=== PATIENT | female | born 1955 | race Two or more races ===

== ENCOUNTER 2017-02-24 12:49 | Emergency (ER) | payer OTHER ==
[~2017-02-24] VITALS: Ht 162.6 cm; Wt 86.0 kg
[~2017-02-24 12:49] MED LIST: AMLO-147 PO; CHOL2000 PO; HYDR-3498 PO; LISI10TA2 PO
[2017-02-24 13:05] VITALS: Ht 162.6 cm; Wt 86.0 kg
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
[2017-02-24] MEDS ORDERED: KETOROLAC 15 MG INJ IM STA (14:03)
[2017-02-24] MEDS ORDERED: ONDANSETRON (ODT) 4 MG TAB ODT STA (14:03)
--- NOTE | 2017-02-24 15:23 | RADRPT ---
PROCEDURE: Chest 2 views. CLINICAL INDICATION: Chest pain and trauma TECHNIQUE: PA and lateral views of the chest were obtained. COMPARISON: April 11, 2016 FINDINGS: The heart size is within normal limits. Calcified atherosclerosis is noted in the aorta. The lungs a re hyperexpanded. No consolidations are identified. No pneumothorax is seen. The osseous structur es are osteopenic, but appear grossly intact. Mild to moderate degenerative changes are seen in the spine and shoulders. IMPRESSION: Calcified atherosclerosis in the aorta. Hyperexpanded, clear lungs. No visualized traumatic injury. If there is high clinical suspicion for traumatic injury, further evaluation with CT should be consi dered. RPTAT: AA .Al Arana MD, Date Time Electronically viewed and signed by .Al Arana MD, MD on 02/24/2017 15:23 .P/
--- NOTE | 2017-02-24 15:25 | RADRPT ---
PROCEDURE: XR Cervical Spine 3 Views. CLINICAL INDICATION: Neck pain and trauma TECHNIQUE: AP, lateral and odontoid views of the cervical spine were performed. The images were re viewed on a PACS workstation. COMPARISON: None. FINDINGS: Diffuse osteopenia is identified. Straightening of the normal lordosis is seen. The base of the den s and orientation of C1 to C2 are not well visualized on the odontoid image. No fractures or destruc tive bony lesions are observed. Severe intervertebral disk space narrowing is identified at C6-7. M oderate intervertebral disk space narrowing is identified at C5-6. Facet arthrosis is noted at C6-7 . No prevertebral soft tissue thickening is observed. IMPRESSION: Limited exam with the base of the dens and orientation of C1 to C2 not well visualized on the odonto id image. Repeat odontoid image or further characterization with CT should be considered. No visualized traumatic injury. Severe degenerative disk disease and C6-7. Moderate degenerative disk disease at C5-6. Facet arthrosis in the lower cervical spine. If there is high clinical suspicion for traumatic injury, further evaluation with CT should be consi dered. RPTAT: AA .Al Arana MD, MD Date Time Electronically viewed and signed by .Al Arana MD, MD on 02/24/2017 15:25 .P/
--- NOTE | 2017-02-24 15:27 | RADRPT ---
PROCEDURE: Left shoulder 3 views CLINICAL INDICATION: Left shoulder pain and trauma. TECHNIQUE: AP internal and external rotation and transscapular Y views of the left shoulder were o btained COMPARISON: None available FINDINGS: Diffuse osteopenia is identified. The osseous structures appear intact. No destructive bony lesion s are observed. Moderate narrowing of the glenohumeral joint is seen. Osteophytosis is noted along the inferior margin of the humeral head. The acromioclavicular joint is unremarkable. Soft tissue s are unremarkable. IMPRESSION: No visualized traumatic injury. Osteopenia. Moderate degenerative changes of the glenohumeral joint. If there is high clinical suspicion for traumatic injury, further evaluation with CT should be consi dered. RPTAT: AA .Al Arana MD, Date Time Electronically viewed and signed by .Al Arana MD, on 02/24/2017 15:27 .P/
[2017-02-24] MEDS ORDERED: CYCL-319 PO (16:10)
[2017-02-24] MEDS ORDERED: ACET500C5 PO (16:10)
== END 2017-02-24 16:20 | disposition home or self-care (01) ==
LOC: FTE 12:49
DX: S10.93XA Contusion of unspecified part of neck, initial encounter (principal); M62.838 Other muscle spasm; S40.012A Contusion of left shoulder, initial encounter; S20.212A Contusion of left front wall of thorax, initial encounter; I10 Essential (primary) hypertension; V49.49XA Driver injured in collision with other motor vehicles in traffic accident, initial encounter
CPT/HCPCS: 71020; 72040; 73030; 93005; J1885; Z7610; 96372

== ENCOUNTER 2017-12-30 22:25 | Emergency (ER) | END 2017-12-31 04:11 | disposition home or self-care (01) ==